=== PATIENT | male | born 1960 | race Caucasian/White ===

== ENCOUNTER 2024-09-10 13:53 | Inpatient (IN) | payer OTHER, SELFPAY ==
[2024-09-10] VITALS (18 sets, daily range): BP systolic 121–168; BP diastolic 65–109; BMI 34.4; BMI 34.7
--- NOTE | 2024-09-10 11:44 | W.PN.CARDCBS ---
Addendum entered and electronically signed by BRAN Austin 09/10/24 12:55:
Home Medications
�Medication �Instructions �Recorded
albuterol sulfate 90 mcg/actuation 2 puff inhalation DAILYPRN PRN 09/10/24
aerosol inhaler wheezing/dyspnea
allopurinol 100 mg tablet 100 mg PO DAILY 09/10/24
aspirin 81 mg tablet 81 mg PO DAILY 09/10/24
dapagliflozin propanediol 10 mg 10 mg PO DAILY 09/10/24
tablet (Farxiga)
fluticasone fur. 100 mcg-umeclid 1 inh inhalation DAILY 09/10/24
62.5 mcg-vilant 25 mcg
inhalat.powder (Trelegy Ellipta)
rosuvastatin 10 mg tablet 10 mg PO DAILY 09/10/24
sodium bicarbonate 650 mg tablet 1,300 mg PO DAILY 09/10/24
Home meds per pt
Original Note:
Today's Communication / Plan
-
[facility] today
trend trop/CK/MB to peak
get echo results from [facility]
cardiac rehab
followup w/Dr. Chan at [facility]
Impression / Plan
-
This is the H&P summary.
Full H&P scanned into chart.
PCP: [facility]
CDY: Aaron Chan MD @[facility]
HPI: This is a 63 y/o male, PMH CVA (04/2023) w/linq implant, chronic tobacco abuse, COPD/emphysema, HTN- (stopped taking BP meds), stable thoracic Ao aneurysm, gout.
New onset chest pain after dinner 09/09, with associated SOB, nausea. drove to [facility] ER. EKG w/Non specific changes. Started on IV heparin, nitro with modest relief but still 3/10. Preliminary echo with preserved LVSF. HS Troponin 2838, CK 1269,
MB 106- still rising.
Transferred for [facility] today.
IMPRESSION:
NSTEMI
CVA w/linq implant (04/2023)
HTN
HLD
DM
COPD/Emphysema
Thoracic Ao Aneurysm (5.7cm from CT Chest 2019)
Gout
Chronic tobacco abuse
PLAN:
63 y/o w/NSTEMI
continue to trend trop/CK/MB to peak
[facility] today
Has not gotten any antiplatelet medication at this time
Echo completed- will get formal report once available
continue aspirin- takes 81 BID at home
monitor BP- stopped BP meds and will need to initiate beta bayron, ACEI.
check lipid profile- taking rosuvastatin 10mg/daily
Thoracic aneurysm- stable and monitored per Dr. Dye- states he has a current order to get one done
check HgbA1C, ISS per protocol, hold metformin 48h post dye load
continue COPD support, must stop smoking
cardiac rehab consult
followup w/Dr. Chan at d/c
Progress Note - Social Work Case Manager
Subjective
Date of Service: September 10, 2024
[2024-09-10] MEDS: NITROGLYCERIN PREMIX 250 IV (12:27)
[2024-09-10] MEDS: HEPARIN 25000 UNITS/250 ML IV (12:38)
[2024-09-10 12:40] LABS: Glucose - Point of Care 118 mg/dl (70-99)
[2024-09-10] MEDS: LOW STRENGTH ASPIRIN 81 MG PO ×2 (12:41→17:53)
[2024-09-10 12:58] LABS: Glucose - Point of Care 127 mg/dl (70-99)
[2024-09-10 13:14] LABS: Total CK 1358 U/L (55-170)
[2024-09-10] MEDS: PLAVIX 600 MG PO (14:42)
[2024-09-10] MEDS: COZAAR 25 MG PO ×2 (16:58→21:43)
[2024-09-10] MEDS: TOPROL XL 25 MG PO ×2 (16:59→21:41)
--- NOTE | 2024-09-10 17:29 | ITS.CL.CATH ---
Blood Tester - Catheterization
Cardiac Catheterization
Procedure Report:
LEFT HEART CATHETERIZATION
Date of Procedure: September 10, 2024
Referring: Dr. Luis Schaffer
PROCEDURES:
1. Coronary angiography
INDICATION: This is a 63-year-old gentleman with no prior cardiac history who presented to [facility] on 09/09/2024 for evaluation of substernal chest pressure. His troponin was modestly elevated and he experienced some degree of chest
discomfort throughout much of the evening and is now referred emergently to [facility] for coronary angiography. Prior to arrival to the catheterization laboratory he was experiencing very mild ongoing chest pressure, however, by the time
he was brought to the catheterization room he was largely chest pain-free and remained chest pain-free throughout the procedure.
An echocardiogram was performed at [facility] was notable for hypokinesis of the mid and apical anteroseptum with an estimated ejection fraction of 45 to 50%. There is mild to moderate aortic valve stenosis and trace aortic insufficiency.
The peak and mean gradient across the aortic valve are 29 and 18 mmHg respectively with an estimated aortic valve area 1.26 cm�.
ACCESS: Right radial artery, 6 Irish sheath
HEMODYNAMICS : (mmHg)
AO (s/d,94) : 121/74, 94
CORONARY FINDINGS
DOMINANCE: Right
LEFT MAIN: Normal
LEFT ANTERIOR DESCENDING: The LAD arises normally from the left main and runs in the anterior interventricular groove. The LAD supplies a large diagonal branch in its midportion and the diagonal is noted to be 100% occluded in its mid to distal
portion. The LAD itself is a medium caliber vessel. 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 The LAD becomes a very small caliber vessel as it approaches the apex
CIRCUMFLEX: 30% ostial circumflex stenosis. The first obtuse marginal branch arises from the mid circumflex and is a small caliber vessel. The second obtuse marginal branch is larger and has a 50% proximal stenosis
RIGHT CORONARY ARTERY: The right coronary artery is a very large caliber dominant vessel that has only minor luminal irregularities over its course. The PDA is widely patent. The posterolateral branch is widely patent
VENTRICULOGRAPHY: The aortic valve was not crossed
SEDATION: 19 minutes of procedural sedation was utilized. An independent medical technologist generalist was present to assist with and help manage the patient's level of consciousness and physiologic status.
RADIATION SUMMARY: Fluoro Time (min): 7.7, Dose (mGy): 483, DAP (Gy.cm2) : 33.2
Closure Device: TR band
CONCLUSIONS
1. Coronary artery disease with 100% occlusion in the midportion of a large caliber diagonal branch. The patient was chest pain-free and PCI was not performed in the absence of ongoing anginal symptoms.
2. Aortic stenosis we will be followed with serial echocardiogram
3. Nonobstructive coronary disease in LAD, circumflex/OM, RCA
RECOMMENDATIONS
1. Patient will be started on clopidogrel. Would continue dual antiplatelet therapy for 6 to 12 months
2. High intensity statin therapy for goal LDL cholesterol clearly less than 70 mg/dL and closer to 55 mg/dL
3. Aggressive blood pressure control for goal of less than 130/80
Copy to: Dr. Demetrius Chan
[2024-09-10] MEDS: SODIUM BICARBONATE 1300 MG PO (17:53)
[2024-09-10] MEDS: CRESTOR 10 MG PO (17:53)
[2024-09-10] MEDS: FARXIGA 10 MG PO (17:53)
[2024-09-10] MEDS: ZYLOPRIM 100 MG PO (17:53)
--- NOTE | 2024-09-10 19:08 | PTCARENOTE ---
~1400: Patient out of CCL. Pt AOx4, NSR on tele, 97% RA. Pt denies pain at this time. Palpable radial adn DP pulses. TR band on R radial site, no ozing or hematoma noted at this time. Admission questions and meds reviewed. Significant other at
bedside. All needs met at this time, call ye within reach.
~1445: Attempt to remove 3 cc of air from TR band per procol, site oozing, air replaced.
~1545: Attempt to remove 3 cc of air from TR band per protocol, site oozing, air replaced.
~1645: 3CC air removed from band, no oozing or hematoma noted. SBP 160s, TESTER/LIFT TRUCKER made aware, ordered to start losartan and metoprolol now. Patient frustrated at this time, education provided and relaxation techniques utilized.
~1700- 1830: Scheduled bloodwork sent to lab. SBP remains 160s, on-call DCA provider aware, awaiting for orders at this time. R radial TR band removed and dressing applied at this time, no sign of oozing or hematoma.
~7659-3885: Patient resting in bed at this time, Pt BP resting is SBP 130s. All needs met at this time, call ye within reach. handoff report given to nightshift RN.
[2024-09-10] MEDS: SPIRIVA RESPIMAT 2.5 MCG 2 PUFF INH (19:25)
[2024-09-10] MEDS: SYMBICORT 80/4.5 MCG INHALER 2 PUFF INH (19:25)
--- NOTE | 2024-09-10 21:00 | PTCARENOTE ---
Received pt at change of shift resting in bed. AAOx3. NSR to sinus tachy on the monitor. BP stable. Right radial cath site C/D/I. No bleeding or hematoma noted. Educated on activity restrictions. pt verbalized understanding. Positive pulses. Pt
denies any pain at this time, but c/o SOB. SpO2 94% on room air. Respiratory therapist made aware and PRN Abuterol administered-- see JUL. Call ye within reach.
[2024-09-10] MEDS: ProAIR HFA INHALER 2 PUFF INH (21:56)
[2024-09-10] MEDS: TYLENOL 650 MG PO (23:55)
[2024-09-10] MEDS: FLUSH (NSS) 1 FLUSH IV (23:56)
[2024-09-11 04:54] VITALS: BP 139/86
[2024-09-11 04:55] VITALS: BP 133/86
[2024-09-11 05:19] LABS: Hematocrit 42.2 % (39.0-52.0); Mean Corp Hgb Conc. 35.5 g/dL (33.0-37.0); Mean Corpuscular Hgb 31.7 pg (27.0-31.0); Mean Corpuscular Volume 89.2 fL (80.0-94.0); Mean Platelet Volume 9.1 fL (7.4-10.4); Platelet Count 184 10^3/uL (130-400); Red Blood Cell Count 4.73 10^6/uL (4.70-6.10); Red Cell Dist. Width 12.8 % (11.5-14.5); White Blood Cell Count 10.9 10^3/uL (4.8-10.8)
[2024-09-11 05:49] LABS: Blood Urea Nitrogen 17 mg/dl (9-20); Calcium 8.9 mg/dl (8.4-10.2); Carbon Dioxide 22 mmol/L (22-30); Chloride 106 mmol/L (98-107); Estimated Creatinine Clearance 73 ml/min; Glucose 125 mg/dl (70-99); HDL Cholesterol 61 mg/dl; LDL Cholesterol, Calculated 44 mg/dl; Potassium 4.2 mmol/L (3.5-5.1); Sodium 138 mmol/L (135-145); Total Cholesterol 117 mg/dl (50-199); Triglyceride 62 mg/dl (10-149); Very Low Density Lipoprotein 12 mg/dl (0-30); eGFR > 60.00
[2024-09-11] MEDS: SYMBICORT 80/4.5 MCG INHALER INH ×2 (07:30→07:34)
[2024-09-11 08:00] VITALS: BP 100/76
--- NOTE | 2024-09-11 08:05 | W.PN.CARDCBS ---
Today's Communication / Plan
-
RECOMMENDATION
- Large thoracic aortic aneurysm by CT scan 2019. He states that he has not had it imaged since. Will obtain repeat CT scan to evaluate aortic dimensions
- Uninterrupted dual antiplatelet therapy
- Medical management for completed diagonal infarction with peak troponin on arrival and trending lower. Clinically chest pain-free
- Continue high intensity lipid-lowering with goal LDL cholesterol less than 55
- Needs excellent blood pressure control. Metoprolol XL 25 mg p.o. twice daily is reasonable given aortic aneurysm as is treatment with ARB
Impression / Plan
-
This is the H&P summary.
Full H&P scanned into chart.
PCP: RICHARD Moncada ([facility])
CDY: Aaron Chan MD @[facility]
HPI: This is a 63 y/o male, H CVA (04/2023) w/linq implant, chronic tobacco abuse, COPD/emphysema, HTN- (stopped taking BP meds), stable thoracic Ao aneurysm, gout.
New onset chest pain after dinner 09/09, with associated SOB, nausea. drove to [facility] ER. EKG w/Non specific changes. Started on IV heparin, nitro with modest relief but still 3/10. Preliminary echo with preserved LVSF. HS Troponin 2838, CK 1269,
MB 106- still rising.
Transferred for [facility].
IMPRESSION:
NSTEMI: Coronary angiography with 100% occlusion of diagonal branch....he was chest pain free and PCI was not undertaken for presumed completed infarct. Troponin peaked on admission at 51 ng/mL then trended low
CVA w/linq implant (04/2023)
HTN
HLD: LDL cholesterol 44 mg/dL
DM
COPD/Emphysema: Ongoing tobacco use
Thoracic Ao Aneurysm (5.7cm from CT Chest 2019)
Gout
Chronic tobacco abuse
-09/10/2024: Cath: LM: Normal, LAD: Minor irregularities. D1: Large and 100% occluded in its mid-distal portion. LCx: 30% ostial. OM 2 is urgent has 50% proximal stenosis. LCx: Very large caliber with minor irregularities. LV: Not done
-09/10/2024: Echocardiogram: GVH: EF 45-50%. [place] and mid anteroseptum are hypokinetic. Concentric LVH. Diastolic dysfunction. RV: Normal, RA: Normal, MV: Mild thickening with mild mitral regurgitation, TV: Trace TR with normal PAP
PLAN:
-NSTEMI secondary to a completed infarct of diagonal branch which was 100% occluded in his mid to distal portion
Aspirin and clopidogrel for 6 to 12 months
Continue high intensity lipid-lowering
Needs ongoing good blood pressure control with goal of less than 130/80. We have added metoprolol 25 mg p.o. twice daily and 25 mg daily to current medical regimen
-Mixed hyperlipidemia
Continue high intensity lipid-lowering
- Thoracic aortic aneurysm reportedly measuring 5.[address] chest in 2019
Clearly high risk finding if the aorta measured 5.7 cm 5 years ago.
Will repeat noncontrasted CT of the chest today to evaluate aortic dimensions and ask for CT surgical consult if aorta remains dilated
-Ongoing tobacco abuse
Discussed the need for smoking cessation
-Diabetes mellitus
Hemoglobin A1c is pending, however, patient states usually it runs around 6.2% on current medical regimen
- I spent 55 min reviewing records, discussing and examining patient, ordering studies.
Progress Note - Production Director
Subjective
Date of Service: September 11, 2024
Feeling well. Chest pain free.
Objective
Labs:
09/11/24 04:59
09/11/24 04:59
Labs
Hgb 15.0 g/dL (13.0-18.0) 09/11/24 04:59
Hct 42.2 % (39.0-52.0) 09/11/24 04:59
Plt Count 184 10^3/uL (130-400) 09/11/24 04:59
Sodium 138 mmol/L (135-145) 09/11/24 04:59
Potassium 4.2 mmol/L (3.5-5.1) 09/11/24 04:59
BUN 17 mg/dl (9-20) 09/11/24 04:59
Creatinine 1.0 mg/dL (0.7-1.3) 09/11/24 04:59
Glucose 125 mg/dl (70-99) H 09/11/24 04:59
Troponins
09/10/24 09/10/24 09/11/24
12:45 18:09 00:00
Troponin I 51.300 H* 44.700 H* 32.000 H* D
09/11/24
04:59
Troponin I 22.300 H* D
Vital Signs and I&O:
Vital Signs
Temp Pulse Resp BP Pulse Ox
98.7 F 84 18 133/86 96
09/11/24 04:51 09/11/24 05:00 09/11/24 04:51 09/11/24 04:55 09/11/24 04:51
Vital Signs
Temp Pulse Resp BP Pulse Ox
98.7 F 84 18 133/86 96
09/11/24 04:51 09/11/24 05:00 09/11/24 04:51 09/11/24 04:55 09/11/24 04:51
Intake & Output
09/08/24 09/09/24 09/10/24 09/11/24
23:59 23:59 23:59 23:59
Intake Total 360 / 360 240 / 240
Output Total 400 / 400
Balance -40 / -40 240 / 240
Physical Exam
Physical Exam
Physical exam
GEN: AAO x 3. No acute distress
HEENT: NC/AT, sclera are anicteric
LUNGS: Clear to bases bilaterally. No wheezing
CV: Regular rate and rhythm. Normal S1/S2. No S3, No S4. Murmur: /6 crescendo decrescendo murmur upper sternal border
ABD : Soft, NT, Bowel sounds are present.
EXT: No CCE
NEURO: No focal neurologic deficits
[2024-09-11 08:13] VITALS: BP 100/76
[2024-09-11] MEDS: COZAAR 25 MG PO (08:37)
[2024-09-11 08:42] VITALS: BP 125/73
[2024-09-11] MEDS: TOPROL XL 25 MG PO (08:42)
[2024-09-11] MEDS: PLAVIX 75 MG PO (08:42)
[2024-09-11 09:21] LABS: Glycohemoglobin (HgbA1c) 6.2 % (4.0-5.6)
--- NOTE | 2024-09-11 12:55 | W.DS.TRANS ---
DC Summary - E Business Project Manager
-
Discharge Instructions:
Discharge Diagnosis/Procedures NSTEMI, s/p cardiac catheterization
Diet Low Cholesterol
Activity No strenuous activity
Additional Activity For 1 week
Driving Restrictions No driving for 24 hours
Other Services Cardiac Rehab
Instructions:
Stand-Alone Forms: DC Instructions- Cath/EP Lab
Changes to Home Medications: Yes
Discharge Medications:
DC Medications w/original date entered in [employer]
albuterol sulfate 90 mcg/actuation aerosol inhaler 2 puff inhalation DAILYPRN PRN wheezing/dyspnea 09/10/24
allopurinol 100 mg tablet 100 mg PO QPM 09/10/24
aspirin 81 mg tablet 81 mg PO QPM 09/10/24
dapagliflozin propanediol 10 mg tablet (Farxiga) 10 mg PO QPM 09/10/24
fluticasone fur. 100 mcg-umeclid 62.5 mcg-vilant 25 mcg inhalat.powder (Trelegy Ellipta) 1 inh inhalation QPM 09/10/24
rosuvastatin 10 mg tablet 10 mg PO QPM 09/10/24
sodium bicarbonate 650 mg tablet 1,300 mg PO QPM 09/10/24
clopidogrel 75 mg tablet 75 mg PO DAILY #30 tabs 09/11/24
losartan 25 mg tablet 25 mg PO DAILY #30 tabs 09/11/24
metoprolol succinate 25 mg tablet,extended release 24 hr 25 mg PO BID #60 tabs 09/11/24
Home Medication Changes
NEW: clopidogrel, losartan, metoprolol succinate
Pending Results: No
[2024-09-11 13:00] VITALS: BP 121/87
--- NOTE | 2024-09-11 14:28 | PTCARENOTE ---
~[id number]: Handoff report received from nightshift RN. Pt AOx4, NSR on tele, + murmur present, RA. Pt denies pain at this time. Independent in room and walking halls. R radial puncture site soft with no hematoma and dressing CDI. All needs met at
this time, call ye within reach.
~3549-3882: Per cardiology, patient now NPO for CT to check TAA.
~3541-3355: IV team called for AC IV.
~0968-2105: pt taken to CT via wheelchair and transport.
~8608-2457: Patient returned from CT via wheelchair and transport.
~[id number]: D/c orders placed by provider. D/c papoerwork completed and went over with patient. VSS , IVs removed. patient taken to lobby in wheelchair with PCT.
--- NOTE | 2024-09-11 14:38 | CM ---
pt is prev indep, lives in a 2 story home with no steps to enter. plan is for dc to home today
== END 2024-09-11 13:29 | disposition home or self-care (01) | DRG 282 ==
LOC: IVU 13:53
PROVIDERS: Nurse Practitioner; ADMITTING PHYSICIAN Internal Medicine Interventional Cardiology
PROC: 4A023N7 Measurement of Cardiac Sampling and Pressure, Left Heart, Percutaneous Approach (ICD-10-PCS; 2024-09-10)
PROC: B2111ZZ Fluoroscopy of Multiple Coronary Arteries using Low Osmolar Contrast (ICD-10-PCS; 2024-09-10)
DX: I21.4 Non-ST elevation (NSTEMI) myocardial infarction (principal); I25.10 Atherosclerotic heart disease of native coronary artery without angina pectoris; I35.0 Nonrheumatic aortic (valve) stenosis; I10 Essential (primary) hypertension; E78.5 Hyperlipidemia, unspecified; J43.9 Emphysema, unspecified; E11.9 Type 2 diabetes mellitus without complications; Z86.73 Personal history of transient ischemic attack (TIA), and cerebral infarction without residual deficits; F17.200 Nicotine dependence, unspecified, uncomplicated
CPT/HCPCS: 71275; 80048; 80061; 82550; 82553; 82962; 83036; 84484; 85027; 93005; 93454; 94640; 99152; C1894; Q9967